=== PATIENT | female | born 1965 | race Caucasian/White ===

== ENCOUNTER 2016-07-19 18:58 | Emergency (ER) | payer BC, OTHER ==
[2016-07-19 19:09] VITALS: TEMP 97.8
--- NOTE | 2016-07-19 19:24 | ED ---
General Adult HPI - General Chief complaint: Extremity Injury, Lower Stated complaint: RT HIP PAIN Time Seen by Provider: 07/19/16 19:19 Source: patient, RN notes reviewed Mode of arrival: ambulatory Limitations: no limitations - History of Present Illness Initial comments: Patient 50-year-old female who presents emergency room today with a chief complaint of increased pain to the right hip area. She does admit that she's had chronic right hip pain. States she's been following up with orthopedics is had injections. States that today she was trying to get into her car and felt a pop located to the right hip area. States increased pain to this area worse with certain movements. States she has been able to bear weight and ambulate. Denies any other complaints or symptoms. Denies any bowel or bladder incontinence or retention. Denies any saddle anesthesia. Patient denies any recent fever, chills, shortness of breath, chest pain, back pain, abdominal pain , nausea or vomiting, dysuria or hematuria, constipation or diarrhea, headaches or visual changes, or any other complaints. - Related Data Home Medications Medication Instructions Recorded Confirmed Acyclovir [Zovirax] 800 mg PO TID PRN 07/19/16 07/19/16 Albuterol Inhaler [Ventolin Hfa 1 - 2 puff INHALATION RT-Q4H PRN 07/19/16 Inhaler] Aspirin EC [Ecotrin Low Dose] 81 mg PO DAILY 07/19/16 07/19/16 Atenolol [Tenormin] 50 mg PO BID 07/19/16 07/19/16 Beclomethasone Dipropionate [Qvar 1 puff INHALATION RT-DAILY 07/19/16 07/19/16 40 mcg] Cyclobenzaprine [Flexeril] 5 mg PO TID 07/19/16 07/19/16 Ergocalciferol (Vitamin D2) 50,000 unit PO TH 07/19/16 07/19/16 [Vitamin D2] Fluticasone Nasal [place] [Flonase 2 spr EA NOSTRIL DAILY 07/19/16 07/19/16 Nasal [place]] Gabapentin [Neurontin] 200 mg PO TID PRN 07/19/16 07/19/16 Ibuprofen [Motrin] 800 mg PO Q8H PRN 07/19/16 07/19/16 Meloxicam [Mobic] 15 mg PO BID 07/19/16 07/19/16 Montelukast [Singulair] 10 mg PO DAILY 07/19/16 07/19/16 Pantoprazole [Protonix] 40 mg PO DAILY 07/19/16 07/19/16 Pravastatin Sodium [Pravachol] 20 mg PO DAILY 07/19/16 07/19/16 SUMAtriptan SUCCINATE [Imitrex] 50 mg PO BID PRN MDD 100MG 07/19/16 07/19/16 predniSONE 20 mg PO BID 07/19/16 07/19/16 traMADol HCL [Ultram] 50 mg PO Q6HR PRN 07/19/16 07/19/16 Previous Rx's Medication Instructions Recorded Hydrocodone/Acetaminophen [[place] 1 each PO Q6HR PRN #15 tab 07/19/16 5-325] Allergies Allergy/AdvReac Type Severity Reaction Status Date / Time indomethacin [From Indocin] Allergy Unknown Verified 07/19/16 19:19 moxifloxacin [From Avelox] Allergy Unknown Verified 07/19/16 19:19 Sulfa (Sulfonamide Allergy Unknown Verified 07/19/16 19:19 Antibiotics) Review of Systems ROS Statement: Those systems with pertinent positive or pertinent negative responses have been documented in the HPI. ROS Other: All systems not noted in ROS Statement are negative. Past Medical History Past Medical History: Hypertension Additional Past Medical History / Comment(s): collapsed carotid, Chronic Bronchitis. DJD. History of Any Multi-Drug Resistant Organisms: None Reported Past Surgical History: Appendectomy, Cholecystectomy Additional Past Surgical History / Comment(s): ortho Past Psychological History: No Psychological Hx Reported Smoking Status: Current every day smoker Past Alcohol Use History: None Reported Past Drug Use History: None Reported General Exam - General Exam Comments Initial Comments: General: The patient is awake and alert, in no distress, and does not appear acutely ill. Neck: The neck is supple, there is no tenderness or JVD. Cardiovascular: There is a regular rate and rhythm. No murmur, rub or gallop is appreciated. Respiratory: Lungs are clear to auscultation, respirations are non-labored, breath sounds are equal. No wheezes, stridor, rales, or rhonchi. Musculoskeletal: Normal appearance of the right hip. No shortening or rotation. Sensation is intact pulses equal bilaterally 2+. Mild tenderness along. Mild tenderness over the lateral aspect of the right hip. No other bony tenderness. Neurological: A&O x 3. CN II-XII intact, There are no obvious motor or sensory deficits. Coordination appears grossly intact. Speech is normal. Skin: Skin is warm and dry and no rashes or lesions are noted. Psychiatric: Normal mood and affect. Limitations: no limitations Course Vital Signs 07/19/16 19:06 Temperature 97.8 F Pulse Rate 84 Respiratory 20 Rate Blood Pressure 155/85 O2 Sat by Pulse 96 Oximetry Medical Decision Making - Medical Decision Making Patient reexamined at this time shows no signs of distress. X-rays are negative. Patient will be given short prescription of pain medication go home with. Advised follow-up with orthopedic over the next 2 days. Advised return for any other concerns. Disposition Clinical Impression: Right hip pain Disposition: HOME SELF-CARE Condition: Good Instructions: Hip Pain (ED) Additional Instructions: Please use medication as discussed. Please follow-up with family doctor/ orthopedic in the next 2 days. Please return to emergency room if the symptoms increase or worsen or for any other concerns. Prescriptions: Hydrocodone/Acetaminophen [[place] 5-325] 1 each PO Q6HR PRN #15 tab PRN Reason: Pain Time of Disposition: 20:12
--- NOTE | 2016-07-19 19:53 | XR ---
EXAMINATION TYPE: XR Hip RT and AP Pelvis DATE OF EXAM: 07/19/2016 7:49 PM COMPARISON: NONE HISTORY: Hip pain TECHNIQUE: 4 views. FINDINGS: The pelvic ring is intact. Proximal right femur and hip joint appear intact. There is no sign of a fr acture. Sacroiliac joints appear normal. CONCLUSION: Negative pelvis and right hip exam.
[2016-07-19 20:23] VITALS: BP 150/80; PULSE 70; RESP 15
== END 2016-07-19 20:21 | disposition home or self-care (01) ==
LOC: EC 18:58
DX: M25.551 Pain in right hip (principal); I10 Essential (primary) hypertension; F17.200 Nicotine dependence, unspecified, uncomplicated; Z79.52 Long term (current) use of systemic steroids; Z79.1 Long term (current) use of non-steroidal anti-inflammatories (NSAID); Z79.51 Long term (current) use of inhaled steroids; Z79.82 Long term (current) use of aspirin; Z79.899 Other long term (current) drug therapy; Z88.1 Allergy status to other antibiotic agents; Z88.2 Allergy status to sulfonamides; Z88.8 Allergy status to other drugs, medicaments and biological substances
CPT/HCPCS: 73502; 99283

== ENCOUNTER → 2016-07-24 | Outpatient (CLI) | payer BC, OTHER ==
[2016-07-24 12:38] LABS: Basophils # (A) 0.1 k/uL (0-0.2); Basophils % (A) 1 %; CH 32.6; CHCM 33.2; Eosinophils # (A) 0.2 k/uL (0-0.7); Eosinophils % (A) 2 %; HCT 44.2 % (34.0-46.0); HDW 2.86; HGB 14.7 gm/dL (11.4-16.0); Luc # (Auto) 0.32; Luc % (Auto) 3; Lymphocytes # (A) 2.3 k/uL (1.0-4.8); Lymphocytes % (A) 22 %; MCH 32.9 pg (25.0-35.0); MCHC 33.2 g/dL (31.0-37.0); Mean Platelet Volume 7.8; Monocytes # (A) 0.6 k/uL (0-1.0); Monocytes % (A) 6 %; Neutrophils # (A) 7.2 k/uL (1.3-7.7); Neutrophils % (A) 67 %; RBC 4.46 m/uL (3.80-5.40); RDW 14.1 % (11.5-15.5); WBC 10.7 k/uL (3.8-10.6); WBC (Perox) 11.07
[2016-07-24 12:48] LABS: Rheumatoid Factor, Qnt <9 IU/mL (<12)
[2016-07-24 12:49] LABS: C Reactive Protein 9.6 mg/L (<10.0); Uric Acid 5.4 mg/dL (3.7-7.4)
[2016-07-24 14:40] LABS: Erythrocyte Sedimentation Rate 17 mm/hr (0-20)
[2016-07-24 16:07] LABS: ANA w/Reflex to Titer POSITIVE (NEGATIVE)
[2016-07-25 06:22] LABS: Lyme Antibodies Total(IgG/IgM) 0.16 (<0.90)
[2016-07-25 12:50] LABS: HLA B27 NEGATIVE; HLA B27 Comment SEEBELOW
== END ==
LOC: LABWHC1 11:50
PROVIDERS: ATTEND Orthopaedic Surgery
DX: M06.9 Rheumatoid arthritis, unspecified (principal); M32.9 Systemic lupus erythematosus, unspecified
CPT/HCPCS: 36415; 84550; 85025; 85652; 86038; 86039; 86140; 86225; 86431; 86618; 86812

== ENCOUNTER → 2016-07-24 | Outpatient (CLI) | payer BC, OTHER | END | disposition home or self-care (01) | LOC: RADMRIMAIN 12:11 | PROVIDERS: ATTEND Orthopaedic Surgery | DX: Z53.9 Procedure and treatment not carried out, unspecified reason (principal) ==

== ENCOUNTER → 2016-07-25 | Outpatient (CLI) | payer BC, OTHER ==
--- NOTE | 2016-07-26 07:34 | MR ---
EXAMINATION TYPE: MR hip RT wo con DATE OF EXAM: 07/25/2016 8:16 PM COMPARISON: Pelvic and right hip x-ray July 19, 2016. Outside pelvic and right hip x-rays July 20. HISTORY: Rt hip pain/limited movement x 1 year, no trauma Standard multiplanar, multisequence MRI departmental protocol Multiplanar, multisequence images of the pelvis focusing on right hip were acquired. FINDINGS: Bone marrow signal intensity throughout the pelvis particularly in the right hip is felt sa tisfactory without suspicious edema seen. Sacroiliac joints are maintained. Pubic symphysis is intact . There are small symmetric hip joint effusions seen bilaterally. Femoral head shapes are maintained bilaterally. No suspicious linear T1 signal is seen to suggest avascular necrosis. No significant spu rring is noted. Muscle bulk in the right thigh is symmetric and felt within normal limits to opposite left side. No f at or bowel containing inguinal hernia is seen bilaterally. No suspicious groin adenopathy is noted. Labrum appears intact given limitation of nonarthrogram study. There is asymmetric increased fluid in the right hip over the greater trochanter seen best coronal im age 8. More mild appearance is noted over the opposite left trochanter. Mild increased fluid is also seen in the right hip at level of lesser trochanter on coronal image 11 and axial image 9. Some incre ased signal in the proximal tendons head attachment is identified. Some increased signal is seen with in the muscle of the anterolateral proximal thigh on axial image 6. Slice portion of bladder is unremarkable. Uterus is anteverted in shape. Multiple nabothian cysts are seen in the cervix. No free fluid is seen in pelvis. No suspicious bowel dilatation is seen. No conc erning pelvic adenopathy is noted. Some diverticula proximal sigmoid colon are incidentally noted in the left lower quadrant of the lower abdomen. IMPRESSION: Moderate to severe right-sided greater trochanteric bursitis and mild right-sided lesser trochanteric bursitis. Incidental note is made of mild left-sided greater trochanteric bursitis.
== END | disposition home or self-care (01) ==
LOC: RADMRIMAIN 18:54
PROVIDERS: ATTEND Orthopaedic Surgery
DX: M70.61 Trochanteric bursitis, right hip (principal); M70.62 Trochanteric bursitis, left hip

== ENCOUNTER 2017-04-09 23:05 | Emergency (ER) | payer BC ==
[2017-04-09 23:15] VITALS: RESP 18
--- NOTE | 2017-04-09 23:49 | ED ---
General Adult HPI - General Chief complaint: GI Bleed Stated complaint: rectal bleeding Time Seen by Provider: 04/09/17 23:30 Source: patient, RN notes reviewed Mode of arrival: ambulatory Limitations: no limitations - History of Present Illness Initial comments: 51 yo female presents to the ER with cc of noticing a bulge in the vaginal area with associated mild vaginal bleeding upon wiping. Patient was concerned that it may be rectal but she states it is more when she wipes vaginally. She has had multiple children in the past. She denies any pain states she has a little bit of pelvic pressure with this. She denies any fever chills cough cold runny nose. Patient was concerned due to the bulge so she thought that she should be seen. Patient denies any recent fever, chills, shortness of breath, chest pain, back pain, nausea vomiting, numbness or tingling, dysuria or hematuria, constipation or diarrhea, headaches or visual changes, or any other current symptoms. - Related Data Home Medications Medication Instructions Recorded Confirmed Acyclovir [Zovirax] 800 mg PO TID PRN 07/19/16 04/09/17 Albuterol Inhaler [Ventolin Hfa 1 - 2 puff INHALATION RT-Q4H PRN 07/19/16 Inhaler] Aspirin EC [Ecotrin Low Dose] 81 mg PO DAILY 07/19/16 04/09/17 Atenolol [Tenormin] 50 mg PO BID 07/19/16 04/09/17 Beclomethasone Dipropionate [Qvar 1 puff INHALATION RT-DAILY 07/19/16 04/09/17 40 mcg] Ergocalciferol (Vitamin D2) 50,000 unit PO TH 07/19/16 04/09/17 [Vitamin D2] Fluticasone Nasal [place] [Flonase 2 spr EA NOSTRIL DAILY 07/19/16 04/09/17 Nasal [place]] Gabapentin [Neurontin] 300 mg PO TID PRN 07/19/16 04/09/17 Ibuprofen [Motrin] 800 mg PO Q8H PRN 07/19/16 04/09/17 Meloxicam [Mobic] 15 mg PO DAILY 07/19/16 04/09/17 Montelukast [Singulair] 10 mg PO DAILY 07/19/16 04/09/17 SUMAtriptan SUCCINATE [Imitrex] 50 mg PO BID PRN MDD 100MG 07/19/16 04/09/17 predniSONE 20 mg PO BID 07/19/16 04/09/17 traMADol HCL [Ultram] 50 mg PO Q6HR PRN 07/19/16 04/09/17 Atorvastatin Calcium [Lipitor] 20 mg PO HS 04/09/17 04/09/17 Omeprazole 20 mg PO 04/09/17 Allergies Allergy/AdvReac Type Severity Reaction Status Date / Time indomethacin [From Indocin] Allergy Unknown Verified 07/19/16 19:19 moxifloxacin [From Avelox] Allergy Unknown Verified 07/19/16 19:19 Sulfa (Sulfonamide Allergy Unknown Verified 07/19/16 19:19 Antibiotics) Review of Systems ROS Statement: Those systems with pertinent positive or pertinent negative responses have been documented in the HPI. ROS Other: All systems not noted in ROS Statement are negative. Past Medical History Past Medical History: Hypertension Additional Past Medical History / Comment(s): collapsed carotid, Chronic Bronchitis. DJD, scoliosis History of Any Multi-Drug Resistant Organisms: None Reported Past Surgical History: Appendectomy, Cholecystectomy, Orthopedic Surgery Additional Past Surgical History / Comment(s): Knee sx. Past Psychological History: No Psychological Hx Reported Smoking Status: Current every day smoker Past Alcohol Use History: None Reported Past Drug Use History: None Reported General Exam - General Exam Comments Initial Comments: General: The patient is awake and alert, in no distress, and does not appear acutely ill. Eye: Pupils are equal, round. Ears, nose, mouth and throat: There are moist mucous membranes. Neck: The neck is supple, there is no tenderness. Cardiovascular: There is a regular rate and rhythm. No murmur, rub or gallop is appreciated. Respiratory: Lungs are clear to auscultation, respirations are non-labored, breath sounds are equal. No wheezes, stridor, rales, or rhonchi. Gastrointestinal: Soft, non-distended, non-tender abdomen without masses or organomegaly noted. There is no rebound or guarding present. No CVA tenderness. Bowel sounds are unremarkable. Musculoskeletal: Normal ROM, no tenderness, There is no pedal edema. There is no calf tenderness or swelling. Sensation intact. Pulses equal bilaterally 2+. Neurological: CN II-XII intact, There are no obvious motor or sensory deficits. Coordination appears grossly intact. Speech is normal. Skin: Skin is warm and dry and no rashes or lesions are noted. Psychiatric: Cooperative, appropriate mood & affect, normal judgment. Limitations: no limitations External exam: Present: normal external exam, other (uterine prolapse suspicion) . Absent: erythema, swelling, lesions, lacerations, ecchymosis Course Vital Signs 04/09/17 23:10 Temperature 97.7 F Pulse Rate 87 Respiratory 18 Rate Blood Pressure 142/89 O2 Sat by Pulse 99 Oximetry Medical Decision Making - Medical Decision Making 51-year-old female presents to the emergency department with a chief complaint of what appears to be uterine prolapse. There is hematuria which patient states is chronic. Ultrasound and urine have been reviewed. This time we discussed follow-up with [facility]. We discussed return parameters all questions. Patient stated that she understood and she is in agreement this plan. All questions have been answered. She will be discharged. - Lab Data Lab Results 04/09/17 Range/Units 23:40 Urine Color Yellow Urine Appearance Clear (Clear) Urine pH 6.0 (5.0-8.0) Ur Specific [place] 1.018 (1.001-1.035) Urine Protein Negative (Negative) Urine Glucose (UA) Negative (Negative) Urine Ketones Negative (Negative) Urine Blood Moderate H (Negative) Urine Nitrite Negative (Negative) Urine Bilirubin Negative (Negative) Urine Urobilinogen <2.0 (<2.0) mg/dL Ur Leukocyte Esterase Negative (Negative) Urine RBC 30 H (0-5) /hpf Urine WBC <1 (0-5) /hpf Ur Squamous Epith Cells 6 H (0-4) /hpf Urine Bacteria Rare H (None) /hpf Urine Mucus Rare H (None) /hpf - Radiology Data Radiology results: report reviewed, image reviewed Disposition Clinical Impression: Uterine prolapse, Hematuria Disposition: HOME SELF-CARE Condition: Stable Instructions: Uterine Prolapse (ED) Additional Instructions: Please use medication as discussed. Please follow up with family doctor if symptoms have not improved over the next two days. Please return to the emergency room if your symptoms increase or worsen or for any other concerns. Referrals: Darren Fierro MD [Primary Care Provider] - 1-2 days Julia Hill MD [STAFF PHYSICIAN] - 1-2 days Time of Disposition: 00:35
[2017-04-09 23:59] LABS: Appearance,Urine Clear (Clear); Bacteria,Urine Rare /hpf; Bilirubin,Urine Negative (Negative); Glucose,Urine (UA) Negative (Negative); Ketones,Urine Negative (Negative); Leukocyte Esterase,Urine Negative (Negative); Mucus,Urine Rare /hpf; Nitrite,Urine Negative (Negative); Particle Count 2544; Protein,Urine Negative (Negative); RBC,Urine 30 /hpf (0-5); Specific Gravity,Urine 1.018 (1.001-1.035); Squamous Epithelial Cell,Urine 6 /hpf (0-4); UA Billing (MACRO vs. MICRO) MICRO; Urobilinogen,Urine <2.0 mg/dL (<2.0); WBC,Urine <1 /hpf (0-5)
--- NOTE | 2017-04-10 00:27 | US ---
EXAMINATION TYPE: US transvaginal DATE OF EXAM: 04/10/2017 COMPARISON: NONE CLINICAL HISTORY: Pain. Postmenopausal bleeding prolapsed uterus TECHNIQUE: Transvaginal (TV) Date of LMP: 4 years ago EXAM MEASUREMENTS: Uterus: 7.2 x 2.9 x 4.3 cm Endometrial Stripe: 0.4 cm Right Ovary: 1.9 x .8 x 1.2 cm 1. Uterus: Anteverted heterogenous nabothian cysts seen in cervix 2. Endometrium: heterogenous with echogenic foci seen 3. Right Ovary: wnl 4. Left Ovary: Obscured by overlying bowel gas Spectral, color and waveform doppler imaging shows good arterial and venous flow within the right o vary; there is no evidence for ovarian torsion. 5. Bilateral Adnexa: wnl 6. Posterior cul-de-sac: wnl Uterus and endometrium heterogenous with echogenic foci seen within endometrium IMPRESSION: No endometrial thickening. Tiny echogenic areas in the endometrium measured 2 mm and coul d be calcifications. No adnexal mass. No evidence of ovarian torsion.
[2017-04-10 00:57] VITALS: BP 128/68; PULSE 81; TEMP 97
== END 2017-04-10 00:57 | disposition home or self-care (01) ==
LOC: EC 23:05
DX: N81.4 Uterovaginal prolapse, unspecified (principal); R31.9 Hematuria, unspecified; I10 Essential (primary) hypertension; F17.200 Nicotine dependence, unspecified, uncomplicated; Z79.1 Long term (current) use of non-steroidal anti-inflammatories (NSAID); Z79.51 Long term (current) use of inhaled steroids; Z79.52 Long term (current) use of systemic steroids; Z79.82 Long term (current) use of aspirin; Z79.899 Other long term (current) drug therapy; Z88.1 Allergy status to other antibiotic agents; Z88.2 Allergy status to sulfonamides; Z88.6 Allergy status to analgesic agent; Z87.39 Personal history of other diseases of the musculoskeletal system and connective tissue; Z87.09 Personal history of other diseases of the respiratory system
CPT/HCPCS: 76830; 81001; 87086; 93976; 99284

== ENCOUNTER → 2017-05-07 | Outpatient (CLI) | payer BC ==
[2017-05-07 12:24] LABS: Anion Gap 8 mmol/L; Blood Urea Nitrogen 19 mg/dL (7-17); Calcium 9.9 mg/dL (8.4-10.2); Carbon Dioxide 26 mmol/L (22-30); Chloride 109 mmol/L (98-107); Glucose 109 mg/dL (74-99); Non-African American GFR(MDRD) >60 (>60 ml/min/1.73 sqM); Potassium 4.6 mmol/L (3.5-5.1); Sodium 143 mmol/L (137-145)
[2017-05-07 13:03] LABS: Basophils # (A) 0.1 k/uL (0-0.2); Basophils % (A) 1 %; CH 31.2; CHCM 33.2; Eosinophils # (A) 0.2 k/uL (0-0.7); Eosinophils % (A) 2 %; HCT 44.5 % (34.0-46.0); HDW 2.45; HGB 14.4 gm/dL (11.4-16.0); Luc # (Auto) 0.11; Luc % (Auto) 1; Lymphocytes # (A) 2.1 k/uL (1.0-4.8); Lymphocytes % (A) 25 %; MCH 30.7 pg (25.0-35.0); MCHC 32.5 g/dL (31.0-37.0); MCV 94.5 fL (80.0-100.0); Mean Platelet Volume 8.1; Monocytes # (A) 0.4 k/uL (0-1.0); Monocytes % (A) 5 %; Neutrophils # (A) 5.5 k/uL (1.3-7.7); Neutrophils % (A) 66 %; RBC 4.71 m/uL (3.80-5.40); RDW 13.2 % (11.5-15.5); WBC 8.4 k/uL (3.8-10.6); WBC (Perox) 8.54
== END | disposition home or self-care (01) ==
LOC: LABPAT 11:43
PROVIDERS: ATTEND Obstetrics & Gynecology
DX: Z01.812 Encounter for preprocedural laboratory examination (principal)
CPT/HCPCS: 36415; 80048; 85025; 86850; 86900; 86901

== ENCOUNTER 2017-05-17 05:44 | Inpatient (IN) | payer BC, OTHER ==
[2017-05-07 12:03] VITALS: BMI 29.2
--- NOTE | 2017-05-16 14:44 | P.HPOB ---
History of Present Illness H&P Date: 05/16/17 Chief Complaint: Uterine prolapse with cystocele and rectocele This is a 51-year-old female 4 para 3 who presents for total vaginal hysterectomy with anterior and posterior vaginal colporrhaphy secondary to uterine prolapse with cystocele and rectocele. The patient complains of a vaginal mass along with pelvic pressure, pelvic pain, and back pain. She also has some slight urinary incontinence but no constipation. The pain radiates towards her lower back. Her symptoms are exacerbated by prolonged standing and physical activity. Her symptoms began approximately 1 month ago. She was diagnosed with third degree cystocele, second-degree rectocele, and second- degree uterine prolapse in the office on 04/12/2017. She was fitted for a #4 ring with support and was able to tolerate this well up until her hysterectomy. The patient stated the pain began all of a sudden approximately 3 days before she saw me in the office and that there was no known event that preceded her symptoms. She complained of constant pelvic pain and back pain. Pelvic ultrasound showed uterus measuring 7.2 x 2.9 x 4.3 cm with an endometrial stripe thickness of 0.4 cm. The right ovary appeared normal and the left ovary was not visualized. Obstetrical history: . History of 3 vaginal deliveries and one ectopic. Gynecologic history: She is not currently sexually active. She does have a history of herpes however no outbreaks in many years. Social history: She is . She works full-time at [employer]. Review of Systems Constitutional: Reports fatigue, Reports night sweats Eyes: denies blurred vision, denies pain Ears, nose, mouth and throat: Denies headache, Denies sore throat Cardiovascular: Denies chest pain, Denies shortness of breath Respiratory: Denies cough Gastrointestinal: Reports abdominal pain (RLQ), Denies constipation Genitourinary: Reports pelvic pain Menstruation: Reports postmenopausal Musculoskeletal: Reports low back pain, Reports muscle cramps, Reports myalgias Neurological: Reports headaches Psychiatric: Reports anxiety, Reports change in sleep habits, Reports depression , Reports insomnia Hematologic/Lymphatic: Reports easy bruising Past Medical History Past Medical History: Asthma, GERD/Reflux, Hypertension, Osteoarthritis (OA) Additional Past Medical History / Comment(s): collapsed LEFT carotid, Chronic Bronchitis. scoliosis, degenerative disc diseased, degenerative spondylosthsis, inflammatory autoimmune disorder History of Any Multi-Drug Resistant Organisms: None Reported Past Surgical History: Adenoidectomy, Appendectomy, Cholecystectomy, Orthopedic Surgery, Tonsillectomy, Tubal Ligation Additional Past Surgical History / Comment(s): BMT X2, LAPAROTOMY, ARTHROSCOPIC LEFT KNEE, ARTHROSCOPIC SURGERY RIGHT , PARTIAL JOINT REPLACEMENT LEFT KNEE, D&C Past Anesthesia/Blood Transfusion Reactions: No Reported Reaction Past Psychological History: Anxiety, Depression Smoking Status: Current every day smoker Past Alcohol Use History: None Reported Past Drug Use History: None Reported - Past Family History Sister(s) Family Medical History: Cancer Additional Family Medical History / Comment(s): BREAST CANCER Medications and Allergies Home Medications Medication Instructions Recorded Confirmed Type Albuterol Inhaler [Ventolin Hfa 1 - 2 puff INHALATION RT-Q4H PRN 07/19/16 History Inhaler] Aspirin EC [Ecotrin Low Dose] 81 mg PO DAILY 07/19/16 05/07/17 History Atenolol [Tenormin] 50 mg PO BID 07/19/16 05/07/17 History Beclomethasone Dipropionate [Qvar 1 puff INHALATION RT-DAILY PRN 07/19/16 History 40 mcg] Ergocalciferol (Vitamin D2) 50,000 unit PO TH 07/19/16 05/07/17 History [Vitamin D2] Fluticasone Nasal [place] [Flonase 2 spr EA NOSTRIL DAILY PRN 07/19/16 05/07/17 History Nasal [place]] Gabapentin [Neurontin] 300 mg PO [id number] 07/19/16 05/07/17 History Ibuprofen [Motrin] 800 mg PO Q8H PRN 07/19/16 05/07/17 History Meloxicam [Mobic] 15 mg PO DAILY 07/19/16 05/07/17 History Montelukast [Singulair] 10 mg PO DAILY 07/19/16 05/07/17 History SUMAtriptan SUCCINATE [Imitrex] 50 mg PO BID PRN MDD 100MG 07/19/16 05/07/17 History traMADol HCL [Ultram] 50 mg PO Q6HR PRN 07/19/16 05/07/17 History Atorvastatin Calcium [Lipitor] 20 mg PO HS 04/09/17 05/07/17 History Omeprazole 20 mg PO BID 04/09/17 05/07/17 History Atenolol [Tenormin] 50 mg PO HS PRN 05/07/17 05/07/17 History Gabapentin [Neurontin] 900 mg PO HS 05/07/17 05/07/17 History Allergies Allergy/AdvReac Type Severity Reaction Status Date / Time indomethacin [From Indocin] Allergy Anaphylaxis Verified 05/07/17 10:59 moxifloxacin [From Avelox] Allergy SHORTNESS Verified 05/07/17 10:59 OF BREATH Sulfa (Sulfonamide Allergy SEVERE Verified 05/07/17 10:59 Antibiotics) ITCHING Exam Osteopathic Statement: *. No significant issues noted on an osteopathic structural exam other than those noted in the History and Physical/Consult. HEENT: Within normal limits Heart: Regular rate and rhythm Lungs: Clear to auscultation bilaterally Abdomen: Soft, nontender Pelvic exam: Uterus is anteverted, nontender, with no adnexal masses palpated. Third-degree cystocele and second-degree rectocele are noted. Second-degree uterine prolapse is noted. Extremities: Negative Homans Assessment and Plan (1) Cystocele with uterine prolapse Status: Acute Code(s): N81.4 - UTEROVAGINAL PROLAPSE, UNSPECIFIED SNOMED Code(s): 152469971 (2) Rectocele Status: Acute Code(s): N81.6 - RECTOCELE SNOMED Code(s): 164215111 Plan: Proceed with total vaginal hysterectomy with anterior and posterior vaginal colporrhaphy. I have discussed the risks, benefits, and alternative therapies for the above- mentioned procedure and for both sedation/anesthesia as well as necessary blood products administration, if indicated, as they pertain to this patient. The patient has indicated her understanding and acceptance of the risks and procedures discussed.
[~2017-05-17 05:44] MED LIST: DEXAMETHASONE SOD PHOSPHATE 10 MG/ML 1 ML VIAL IV ONE; HYDROmorphone 0.5 MG/0.5 ML SYRINGE IVP PRN; LACTATED RINGERS 1,000 ML IV SCH; MIDAZOLAM 2 MG/2 ML VIAL IV PRN; ONDANSETRON 4 MG/2 ML VIAL IVP ONE; ceFAZolin IN SWFI 2 GM/20 ML SYRINGE IVP ONE
[2017-05-17] MEDS ORDERED: LIDOCAINE 1% 20 ML VIAL (10MG/ML) FOR IV START INTRADERMA ONE (06:29)
[2017-05-17] MEDS ORDERED: PHENYLEPHRINE-0.9% NACL SYG 1 MG/10 ML SYRINGE ONE (07:30)
[2017-05-17] MEDS ORDERED: fentaNYL (PF) 50 MCG/ML 2 ML AMP ONE (07:30)
[2017-05-17] MEDS ORDERED: MIDAZOLAM 2 MG/2 ML VIAL ONE (07:30)
[2017-05-17] MEDS ORDERED: LIDOCAINE 1% INJ 10MG/ML (20 ML MDV) ONE (07:30)
[2017-05-17] MEDS ORDERED: SUCCINYLCHOLINE CHLORIDE 100 MG/5 ML SYR IV ONE (07:30)
[2017-05-17] MEDS ORDERED: PROPOFOL 10 MG/ML 20 ML VIAL IV ONE (07:30)
[2017-05-17] MEDS ORDERED: EPINEPHrine 1 MG/ML 1 ML AMP IV ONE (07:52)
[2017-05-17] MEDS ORDERED: BACITRACIN 500 UNIT/GM OINT 28.4 GM TUBE TOPICAL ONE (07:59)
[2017-05-17] MEDS ORDERED: LACTATED RINGERS 1,000 ML IV ONE ×2 (08:48)
--- NOTE | 2017-05-17 09:04 | P.OP ---
Date of Procedure: 05/17/17 Preoperative Diagnosis: Uterine prolapse with cystocele and rectocele Postoperative Diagnosis: Same plus enterocele Procedure(s) Performed: Total vaginal hysterectomy with anterior and posterior vaginal repair Anesthesia: DOMINGO Surgeon: Jennifer Arreaga Label Tacker #1: Dinah Oreilly Estimated Blood Loss (ml): 50 Pathology: other (Uterus with cervix, vaginal mucosa) Condition: stable Disposition: floor Indications for Procedure: This is a 51-year-old female 4 para 3 who presents for total vaginal hysterectomy with anterior and posterior vaginal colporrhaphy secondary to uterine prolapse with cystocele and rectocele. The patient complains of a vaginal mass along with pelvic pressure, pelvic pain, and back pain. She also has some slight urinary incontinence but no constipation. The pain radiates towards her lower back. Her symptoms are exacerbated by prolonged standing and physical activity. Her symptoms began approximately 1 month ago. She was diagnosed with third degree cystocele, second-degree rectocele, and second- degree uterine prolapse in the office on 04/12/2017. She was fitted for a #4 ring with support and was able to tolerate this well up until her hysterectomy. The patient stated the pain began all of a sudden approximately 3 days before she saw me in the office and that there was no known event that preceded her symptoms. She complained of constant pelvic pain and back pain. Pelvic ultrasound showed uterus measuring 7.2 x 2.9 x 4.3 cm with an endometrial stripe thickness of 0.4 cm. The right ovary appeared normal and the left ovary was not visualized. Operative Findings: Grade 3 cystocele and grade 2 uterine prolapse are noted. Grade 1-2 rectocele is noted. Grade 2 enterocele is noted. Neither ovary is visualized. Description of Procedure: The patient is taken the operating room where she is placed in the dorsal lithotomy position. She is prepped and draped in the normal sterile fashion. Next a weighted speculum was placed in the patient's vagina and a right angle retractor was used to visualize the cervix. The anterior lip of the cervix is grasped with a single-tooth tenaculum. Next the cervix was circumferentially injected with one amp of epinephrine to 150 mL of normal saline. Next the cervix was circumscribed with a scalpel. The vaginal mucosa was pushed away from the cervix with a sponge. Next the uterosacral ligaments are clamped on either side with a Joyce clamp, cut with Valenzuela scissors, and then sutured with 0 Vicryl suture in a Joyce transfixion stitch and then held on either side with a straight hemostat. Next the posterior peritoneal reflection was identified and entered sharply with Valenzuela scissors. The edges of the vaginal mucosa was then tagged with 0 Vicryl suture and held with a curved hemostat for identification. Next a longbilled weighted speculum was placed through the posterior peritoneal reflection. Next the cardinal ligaments were clamped on either side with Joyce clamps, cut with Valenzuela scissors, and then sutured with 0 Vicryl suture in Joyce transfixion stitches and cut. Next the vesicouterine peritoneum reflection is identified and entered sharply with Metzenbaum scissors. A right angle bladder retractor is then used to retract the bladder. The uterine arteries are clamped on either side with Joyce clamps, cut with Valenzuela scissors, and then sutured with 0 Vicryl suture in Joyce transfixion stitches. The round ligament is also clamped on either side with a Joyce clamp , cut with Valenzuela scissors, and sutured with 0 Vicryl suture in Joyce transfixion stitches. Next the uterine ovarian ligament and tube were clamped on either side with a Joyce clamp, cut with Valenzuela scissors, and then sutured with 0 Vicryl suture in a [id number] stitch, flashed, and then free tied with another suture of 0 Vicryl suture. These pedicles were held with a straight Bakari for identification. The uterus is removed from the field. Excellent hemostasis is noted. Next the peritoneum is closed with 0 Vicryl suture in a pursestring fashion incorporating all the held ligaments. Again neither ovary was visualized prior to closing the vaginal cuff area. Next the uterine ovarian ligaments are tied together in the middle and cut. Next attention was turned to the cystocele repair. The edges of the vaginal mucosa are held with 2 Allis clamps. Next injection of the same epinephrine solution is injected underneath the mucosa upwards towards the urethra. Metzenbaum scissors were used to dissect underneath the vaginal mucosa and cut along the way up to just below the urethra. Sharp and blunt dissection are used to dissect the bladder away from the vaginal mucosa. Once the bladder is freed, the cystocele is reduced with 0 Vicryl suture in [id number] stitches on either side of the cystocele. Next the edges of the vaginal mucosa are trimmed with Metzenbaum scissors. Next the vaginal mucosa is sutured with 0 Vicryl suture in a running locked fashion incorporating the vaginal cuff. The uterosacral ligaments were also tied together in the midline prior to completely closing the vaginal cuff. Excellent hemostasis is noted. The Reyes catheter is inserted and clear urine is noted. Next attention was turned to the posterior repair. 2 Allis clamps are used to grasp the introitus at the 4 and 8 o'clock position. Next injection of the same epinephrine solution was injected underneath the vaginal mucosa upwards towards the cuff. Next the scalpel was used to remove a triangle her piece of tissue between the 2 Allis clamps. Metzenbaum scissors are used to dissect underneath the vaginal posterior upwards towards the cuff. The edges of the vaginal mucosa are held with Allis clamps. Next the rectocele and enterocele were dissected away from the vaginal mucosa. The enterocele was reduced with 0 Vicryl suture in a pursestring fashion. The rectocele was repaired with 0 Vicryl suture in interrupted fashion. Next the vaginal mucosa was trimmed with Metzenbaum scissors. The vaginal mucosa was then sutured with 0 Vicryl suture in a running locked fashion up to the introitus and then brought underneath this tissue and whipstitched in a running fashion on the subcutaneous layer and then on to the skin in a subcuticular fashion and tied at the introitus. Next the vagina is packed with one-inch iodoform gauze with bacitracin ointment. All sponge and needle counts are correct and the patient is then taken to recovery room in stable condition.
[2017-05-17] MEDS ORDERED: Acetaminophen-Codeine 300-30mg TAB PO PRN ×2 (09:43)
[2017-05-17] MEDS ORDERED: SIMETHICONE 80 MG CHEWABLE PO PRN (09:43)
[2017-05-17] MEDS ORDERED: METOCLOPRAMIDE 5 MG/ML 2 ML VIAL IVP PRN (09:43)
[2017-05-17] MEDS ORDERED: ZOLPIDEM 5 MG TAB PO PRN (09:43)
[2017-05-17] MEDS ORDERED: ONDANSETRON 4 MG/2 ML VIAL IVP PRN (09:43)
[2017-05-17] MEDS ORDERED: diphenhydrAMINE 50 MG/ML 1 ML VIAL IVP PRN (09:43)
[2017-05-17] MEDS ORDERED: FLUTICASONE 50MCG/SPRAY NASAL 16GM EA NOSTRIL PRN (09:43)
[2017-05-17] MEDS ORDERED: NALOXONE 0.4 MG/ML 1 ML VIAL IV PRN (09:43)
[2017-05-17] MEDS ORDERED: BUDESONIDE 0.5 MG/2 ML NEBU INHALATION PRN (09:43)
[2017-05-17] MEDS ORDERED: IBUPROFEN 600 MG TAB PO PRN (09:43)
[2017-05-17] MEDS: HYDROmorphone PCA 5 MG/25 ML SYRINGE IV PRN ×2 (10:17→15:10)
[2017-05-17] MEDS: KETOROLAC 30 MG/ML 1 ML VIAL IVP PRN ×3 (10:29→21:51)
[2017-05-17] MEDS: ATENOLOL 50 MG TAB PO SCH ×2 (11:35→21:55)
[2017-05-17] MEDS: LACTATED RINGERS 1,000 ML IV SCH (11:35)
[2017-05-17] MEDS: PANTOPRAZOLE 40 MG TABLET PO SCH (11:35)
[2017-05-17] MEDS: MELOXICAM 7.5 MG TAB PO SCH (11:36)
[2017-05-17] MEDS: MONTELUKAST 10 MG TAB PO SCH (11:36)
[2017-05-17] MEDS: SENNOSIDES-DOCUSATE SODIUM 1 EACH TAB PO SCH ×2 (11:54→22:06)
[2017-05-17] MEDS: NICOTINE 21MG/24HR PATCH TRANSDERM SCH (13:52)
[2017-05-17] MEDS ORDERED: GABAPENTIN 300 MG CAP PO SCH (21:00)
[2017-05-17] MEDS ORDERED: ATORVASTATIN 20 MG TAB PO SCH (21:00)
[2017-05-17] MEDS: ALBUTEROL NEBULIZED 2.5 MG/3 ML INHALATION PRN (21:09)
[2017-05-17 21:54] VITALS: TEMP 98.1
[2017-05-18] MEDS: KETOROLAC 30 MG/ML 1 ML VIAL IVP PRN ×2 (03:52→11:29)
[2017-05-18] MEDS: LACTATED RINGERS 1,000 ML IV SCH (03:53)
[2017-05-18] MEDS: ALBUTEROL NEBULIZED 2.5 MG/3 ML INHALATION PRN ×2 (04:27→09:24)
[2017-05-18] MEDS ORDERED: IBUPROFEN 800 MG TAB PO PRN (07:23)
[2017-05-18] MEDS ORDERED: SUMAtriptan SUCCINATE 50 MG TAB PO PRN (07:24)
[2017-05-18] MEDS ORDERED: GABAPENTIN 300 MG CAP PO SCH (07:30)
--- NOTE | 2017-05-18 07:34 | P.DS ---
Providers Date of admission: 05/17/17 05:44 Expected date of discharge: 05/18/17 Attending physician: Jennifer Arreaga Primary care physician: Darren Fierro - Discharge Diagnosis(es) (1) Cystocele with uterine prolapse Current Visit: Yes Status: Acute (2) Rectocele Current Visit: Yes Status: Acute Hospital Course: This is a 51-year-old female who underwent a total vaginal hysterectomy with anterior and posterior vaginal colporrhaphy on 05/17/2017. Postoperatively she has been ambulating. She is passing flatus but no bowel movement yet. Her catheter was just removed this morning and she has urinated very small amount so far this morning. Her bleeding has been moderate. She denies any clots. She does feel less pressure in her pelvic region compared to prior to surgery. She is having some achy feelings in her pelvic region but her pain medicines have been helping. The plan for today is to continue ambulating and to switch to oral pain medications. As long as she is urinating adequate amounts and her pain is well controlled, will plan on discharging home later today. She is given routine postoperative instructions including no heavy lifting, no bending or stooping, may shower, but no tub baths. She is encouraged to continue taking stool softeners at home until she has regular bowel movements. She is advised follow-up in the office in approximately 2 weeks for a postoperative check. She is advised to call the office if she has any further questions or concerns prior to her appointment time. She will be given a prescription for ibuprofen 800 and Tylenol 3 upon discharge. She also has requested a refill on her albuterol inhaler and nicotine patch. Procedures: Total vaginal hysterectomy with anterior and posterior vaginal colporrhaphy on 05/17/2017 Patient Condition at Discharge: Stable Plan - Discharge Summary Discharge Rx Participant: No New Discharge Prescriptions: New Acetaminophen-Codeine 300-30mg [Tylenol w/codeine #3] 1 each PO Q4HR PRN #30 tab PRN Reason: Moderate Pain Ibuprofen [Motrin] 800 mg PO TID PRN #60 tab PRN Reason: Mild Pain Nicotine 21Mg/24Hr Patch [Habitrol] 1 patch TRANSDERM DAILY #14 patch Sennosides-Docusate Sodium [Senokot-S] 2 each PO BID tab Continue Meloxicam [Mobic] 15 mg PO DAILY Aspirin EC [Ecotrin Low Dose] 81 mg PO DAILY Ergocalciferol (Vitamin D2) [Vitamin D2] 50,000 unit PO TH Atenolol [Tenormin] 50 mg PO BID Montelukast [Singulair] 10 mg PO DAILY Fluticasone Nasal [place] [Flonase Nasal [place]] 2 spr EA NOSTRIL DAILY PRN PRN Reason: ALLERY SYMPTOMS SUMAtriptan SUCCINATE [Imitrex] 50 mg PO BID PRN MDD 100MG PRN Reason: Migraine Headache Beclomethasone Dipropionate [Qvar 40 mcg] 1 puff INHALATION RT-DAILY PRN PRN Reason: Shortness Of Breath Gabapentin [Neurontin] 300 mg PO AC-BRKFST Atorvastatin Calcium [Lipitor] 20 mg PO HS Omeprazole 20 mg PO BID Gabapentin [Neurontin] 900 mg PO HS Atenolol [Tenormin] 50 mg PO HS PRN PRN Reason: SYSTOLIC OVER 150 Albuterol Inhaler [Ventolin Hfa Inhaler] 1 - 2 puff INHALATION RT-Q4H PRN #1 puff PRN Reason: Shortness Of Breath Discontinued traMADol HCL [Ultram] 50 mg PO Q6HR PRN PRN Reason: Pain No Action Ibuprofen [Motrin] 800 mg PO Q8H PRN PRN Reason: Pain Discharge Medication List Aspirin EC [Ecotrin Low Dose] 81 mg PO DAILY 07/19/16 [History] Atenolol [Tenormin] 50 mg PO BID 07/19/16 [History] Beclomethasone Dipropionate [Qvar 40 mcg] 1 puff INHALATION RT-DAILY PRN [History] Ergocalciferol (Vitamin D2) [Vitamin D2] 50,000 unit PO TH 07/19/16 [History] Fluticasone Nasal [place] [Flonase Nasal [place]] 2 spr EA NOSTRIL DAILY PRN [History] Gabapentin [Neurontin] 300 mg PO -BRKFST 07/19/16 [History] Ibuprofen [Motrin] 800 mg PO Q8H PRN 07/19/16 [History] Meloxicam [Mobic] 15 mg PO DAILY 07/19/16 [History] Montelukast [Singulair] 10 mg PO DAILY 07/19/16 [History] SUMAtriptan SUCCINATE [Imitrex] 50 mg PO BID PRN MDD 100MG 07/19/16 [History] Atorvastatin Calcium [Lipitor] 20 mg PO HS 04/09/17 [History] Omeprazole 20 mg PO BID 04/09/17 [History] Atenolol [Tenormin] 50 mg PO HS PRN 05/07/17 [History] Gabapentin [Neurontin] 900 mg PO HS 05/07/17 [History] Acetaminophen-Codeine 300-30mg [Tylenol w/codeine #3] 1 each PO Q4HR PRN #30 tab 05/18/17 [Rx] Albuterol Inhaler [Ventolin Hfa Inhaler] 1 - 2 puff INHALATION RT-Q4H PRN #1 puff 05/18/17 [Rx] Ibuprofen [Motrin] 800 mg PO TID PRN #60 tab 05/18/17 [Rx] Nicotine 21Mg/24Hr Patch [Habitrol] 1 patch TRANSDERM DAILY #14 patch 05/18/17 [ Rx] Sennosides-Docusate Sodium [Senokot-S] 2 each PO BID tab 05/18/17 [Rx] Follow up Appointment(s)/Referral(s): Jennifer Arreaga DO [Doctor of Osteopathic Medicine] - 2 Weeks Activity/Diet/Wound Care/Special Instructions: Diet as tolerated. No heavy lifting, stooping, bending. May shower, but no tub baths. No driving until off of narcotic pain medication. Discharge Disposition: HOME SELF-CARE
[2017-05-18] MEDS ORDERED: ACETAMINOPHEN TAB 325 MG TAB PO PRN (07:37)
[2017-05-18 07:55] LABS: Basophils % (A) 0 %; Eosinophils % (A) 0 %; HCT 38.6 % (34.0-46.0); HGB 12.5 gm/dL (11.4-16.0); Lymphocytes # (A) 1.8 k/uL (1.0-4.8); Lymphocytes % (A) 15 %; MCH 30.9 pg (25.0-35.0); MCHC 32.4 g/dL (31.0-37.0); MCV 95.2 fL (80.0-100.0); Mean Platelet Volume 7.7; Monocytes # (A) 0.6 k/uL (0-1.0); Monocytes % (A) 5 %; Neutrophils # (A) 9.6 k/uL (1.3-7.7); Neutrophils % (A) 79 %; Platelet Count 151 k/uL (150-450); RBC 4.06 m/uL (3.80-5.40); RDW 13.1 % (11.5-15.5); WBC 12.3 k/uL (3.8-10.6)
[2017-05-18] MEDS: ATENOLOL 50 MG TAB PO SCH (09:11)
[2017-05-18] MEDS: MELOXICAM 7.5 MG TAB PO SCH (09:13)
[2017-05-18] MEDS: MONTELUKAST 10 MG TAB PO SCH (09:13)
[2017-05-18] MEDS: SENNOSIDES-DOCUSATE SODIUM 1 EACH TAB PO SCH (09:13)
[2017-05-18] MEDS: NICOTINE 21MG/24HR PATCH TRANSDERM SCH (09:13)
[2017-05-18] MEDS: PANTOPRAZOLE 40 MG TABLET PO SCH (09:14)
[2017-05-18 09:28] VITALS: RESP 16
[2017-05-18 11:55] VITALS: BP 122/78; PULSE 94
== END 2017-05-18 12:34 | disposition home or self-care (01) | DRG 743 ==
LOC: 2ORMAIN 05:44 → 6PED 08:55
PROVIDERS: ADMIT Obstetrics & Gynecology; ATTEND Obstetrics & Gynecology
DX: N81.2 Incomplete uterovaginal prolapse (principal); M41.9 Scoliosis, unspecified; F17.200 Nicotine dependence, unspecified, uncomplicated; I10 Essential (primary) hypertension; J42 Unspecified chronic bronchitis; J45.909 Unspecified asthma, uncomplicated; K21.9 Gastro-esophageal reflux disease without esophagitis; Z79.1 Long term (current) use of non-steroidal anti-inflammatories (NSAID); Z79.899 Other long term (current) drug therapy; Z80.3 Family history of malignant neoplasm of breast; Z88.2 Allergy status to sulfonamides; Z88.1 Allergy status to other antibiotic agents
CPT/HCPCS: 81025; 85025; 86850; 86900; 86901; 88302; 88307; 94640

== ENCOUNTER 2018-05-16 13:32 | Emergency (ER) | payer BC, OTHER ==
[2018-05-16 13:35] VITALS: TEMP 97.4
[2018-05-16] MEDS ORDERED: SODIUM CHLORIDE 0.9% 1,000 ML IV STA (13:52)
[2018-05-16] MEDS ORDERED: METOCLOPRAMIDE 5 MG/ML 2 ML VIAL IVP STA (13:52)
[2018-05-16] MEDS ORDERED: KETOROLAC 30 MG/ML 1 ML VIAL IVP STA (13:52)
[2018-05-16] MEDS ORDERED: SUMAtriptan SUCCINATE 6 MG/0.5 ML VIAL SQ STA (13:53)
[2018-05-16] MEDS ORDERED: diphenhydrAMINE 50 MG/ML 1 ML VIAL IVP STA (13:53)
--- NOTE | 2018-05-16 14:00 | ED ---
General Adult HPI - General Chief complaint: Headache Stated complaint: Headache Time Seen by Provider: 05/16/18 13:42 Source: patient, RN notes reviewed Mode of arrival: ambulatory Limitations: no limitations - History of Present Illness Initial comments: 52-year-old female with a past medical history of migraines, hypertension, GERD , osteoarthritis presents to the emergency department for a chief complaint of headache. Patient states this headache is consistent with her migraines. Patient states this started earlier today. She states it was a gradual onset. She describes the pain as a aching pain on the right side of her head. Patient states she recently moved here from [place] but was frequently seen in the emergency department there and had Toradol and Imitrex as treatment which helped her. Patient states she is under a lot of stress right now as her daughter is in a 10 hour surgery and she cannot be there with her and states this is what is triggering her migraine. She denies any gait instability or difficulty walking. She denies any recent head injuries or neck pain. Patient has no other complaints at this time including shortness of breath, chest pain, abdominal pain, nausea or vomiting, headache, or visual changes. - Related Data Home Medications Medication Instructions Recorded Confirmed Ergocalciferol (Vitamin D2) 50,000 unit PO SA 07/19/16 05/16/18 [Vitamin D2] Meloxicam [Mobic] 15 mg PO DAILY 07/19/16 05/16/18 Omeprazole 20 mg PO BID 04/09/17 05/16/18 Aspirin 81 mg PO DAILY 05/16/18 05/16/18 Atenolol 25 mg PO BID@0600,1800 05/16/18 05/16/18 Atenolol [Tenormin] 25 mg PO HS PRN 05/16/18 05/16/18 Cyclobenzaprine [Flexeril] 5 mg PO TID PRN 05/16/18 05/16/18 SUMAtriptan SUCCINATE [Sumatriptan 100 mg PO DAILY PRN 05/16/18 05/16/18 Succinate] oxyCODONE-APAP 5-325MG [Percocet 1 tab PO DAILY PRN 05/16/18 05/16/18 5-325 mg] traMADol HCl [Ultram] 50 mg PO BID 05/16/18 05/16/18 Allergies Allergy/AdvReac Type Severity Reaction Status Date / Time indomethacin [From Indocin] Allergy Anaphylaxis Verified 05/16/18 14:03 morphine Allergy Itching Verified 05/16/18 14:03 moxifloxacin [From Avelox] Allergy SHORTNESS Verified 05/16/18 14:03 OF BREATH Sulfa (Sulfonamide Allergy SEVERE Verified 05/16/18 14:03 Antibiotics) ITCHING Review of Systems ROS Statement: Those systems with pertinent positive or pertinent negative responses have been documented in the HPI. ROS Other: All systems not noted in ROS Statement are negative. Past Medical History Past Medical History: GERD/Reflux, Hypertension, Osteoarthritis (OA) Additional Past Medical History / Comment(s): migraines, collapsed LEFT carotid , Chronic Bronchitis. scoliosis History of Any Multi-Drug Resistant Organisms: None Reported Past Surgical History: Back Surgery Additional Past Surgical History / Comment(s): BMT X2, LAPAROTOMY, ARTHROSCOPIC LEFT KNEE, ARTHROSCOPIC SURGERY RIGHT , PARTIAL JOINT REPLACEMENT LEFT KNEE Past Anesthesia/Blood Transfusion Reactions: No Reported Reaction Past Psychological History: No Psychological Hx Reported Smoking Status: Current every day smoker Past Alcohol Use History: None Reported Past Drug Use History: None Reported - Past Family History Sister(s) Family Medical History: Cancer Additional Family Medical History / Comment(s): BREAST CANCER General Exam Limitations: no limitations General appearance: alert, in no apparent distress Head exam: Present: atraumatic, normocephalic, normal inspection Eye exam: Present: normal appearance, PERRL, EOMI. Absent: scleral icterus, conjunctival injection, periorbital swelling ENT exam: Present: normal exam, normal oropharynx (uvula midline), mucous membranes moist Neck exam: Present: normal inspection, full ROM. Absent: tenderness, meningismus, lymphadenopathy Respiratory exam: Present: normal lung sounds bilaterally. Absent: respiratory distress, wheezes, rales, rhonchi, stridor Cardiovascular Exam: Present: regular rate, normal rhythm, normal heart sounds. Absent: systolic murmur, diastolic murmur, rubs, gallop, clicks Extremities exam: Present: normal inspection (appear WNL, moving all extermities ) Neurological exam: Present: alert, oriented X3, CN II-XII intact, normal gait Expanded Patient oriented to: Present: person, place, time Speech: Present: fluid speech Cranial nerves: EOM's Intact: Normal, Tongue Deviation: Normal, Nystagmus: Normal, Facial Sensation: Normal Sensory exam: Upper Extremity Light Touch: Normal, Upper Extremity Pin Prick: Normal, Lower Extremity Light Touch: Normal, Lower Extremity Pin Prick: Normal Motor strength exam: RUE: 5, LUE: 5, RLE: 5, LLE: 5 Eye Response: (4) open spontaneously Motor Response: (6) obeys commands Verbal Response: (5) oriented Webster Total: 15 Psychiatric exam: Present: normal affect, normal mood Course Vital Signs 05/16/18 13:33 Temperature 97.4 F L Pulse Rate 80 Respiratory 16 Rate Blood Pressure 131/88 O2 Sat by Pulse 99 Oximetry Medical Decision Making - Medical Decision Making 52-year-old female presents for right-sided headache consistent with previous migraines. No focal neuro deficits. Patient is sensitive to light and sound, onset was gradual. Patient has not been seen here before for this but recently moved from [place] and was seen frequently there. Vitals are within acceptable limits. Patient was given pain medications and Reglan. On reevaluation patient states her headache is completely gone. She states she is feeling much better. Stating she would like to go home at this time. Patient does have a neurologist in the area and will follow-up with him. She will return if she has any worsening symptoms which she agrees with. Disposition Clinical Impression: Headache Disposition: HOME SELF-CARE Condition: Good Instructions: Migraine Headache (ED), Acute Headache (ED) Additional Instructions: Please continue to take home medications. Please follow-up with your neurologist or primary care in 1-2 days. Return if you have any worsening symptoms. Is patient prescribed a controlled substance at d/c from ED?: No Referrals: Darren Fierro MD [Primary Care Provider] - 1-2 days Time of Disposition: 15:45
[2018-05-16 16:12] VITALS: BP 130/87; PULSE 70; RESP 18
== END 2018-05-16 15:57 | disposition home or self-care (01) ==
LOC: EC 13:32
DX: G43.909 Migraine, unspecified, not intractable, without status migrainosus (principal); Z63.79 Other stressful life events affecting family and household; I10 Essential (primary) hypertension; K21.9 Gastro-esophageal reflux disease without esophagitis; M19.90 Unspecified osteoarthritis, unspecified site; F17.200 Nicotine dependence, unspecified, uncomplicated; Z88.1 Allergy status to other antibiotic agents; Z88.2 Allergy status to sulfonamides; Z88.5 Allergy status to narcotic agent; Z88.6 Allergy status to analgesic agent; Z79.1 Long term (current) use of non-steroidal anti-inflammatories (NSAID); Z79.82 Long term (current) use of aspirin; Z79.891 Long term (current) use of opiate analgesic; Z79.899 Other long term (current) drug therapy; Z96.652 Presence of left artificial knee joint
CPT/HCPCS: 99283; 96374; 96375 ×2; 96361; 96372; J3030; J1200; J2765; J1885

== ENCOUNTER → 2019-11-17 | Outpatient (CLI) | payer MEDICARE, OTHER ==
--- NOTE | 2019-11-17 13:53 | US ---
EXAMINATION TYPE: US venous doppler duplex LE DATE OF EXAM: 11/17/2019 10:01 AM COMPARISON: NONE CLINICAL HISTORY: Edema R60.9 Lower extremity. SIDE PERFORMED: Bilateral TECHNIQUE: The lower extremity deep venous system is examined utilizing real time linear array sonog topher with graded compression, doppler sonography and color-flow sonography. VESSELS IMAGED: External Iliac Vein (EIV) Common Femoral Vein Deep Femoral Vein Greater Saphenous Vein * Femoral Vein Popliteal Vein Small Saphenous Vein * Proximal Calf Veins (* superficial vessels) On scanning note is made of a ill-defined hypoechoic area measuring approximately 3.4 x 3.3 x 1.7 cm may be a right popliteal fossa cyst. Right Leg: Negative for DVT Left Leg: Negative for DVT IMPRESSION: 1. Bilateral lower extremity ultrasound negative for deep venous thrombosis. 2. There appears to be a right popliteal cyst present.
== END | disposition home or self-care (01) ==
LOC: RADUSWWP 09:32
PROVIDERS: ATTEND Internal Medicine
DX: R60.9 Edema, unspecified (principal)
CPT/HCPCS: 93970

== ENCOUNTER → 2019-11-20 | Outpatient (CLI) | payer MEDICARE, OTHER ==
--- NOTE | 2019-11-20 13:00 | ECHOF ---
Referral Reason:R60.02 Short of breath MEASUREMENTS -------- HEIGHT: 175.3 cm WEIGHT: 102.5 kg BP: RVIDd: 3.7 cm (< 3.3) IVSd: 1.2 cm (0.6 - 1.1) LVIDd: 3.9 cm (3.9 - 5.3) LVPWd: 1.1 cm (0.6 - 1.1) IVSs: 1.5 cm LVIDs: 2.8 cm LVPWs: 1.5 cm LAESV Index (A-L): 17.87 ml/m Ao Diam: 3.1 cm (2.0 - 3.7) AV Cusp: 2.2 cm (1.5 - 2.6) MV EXCURSION: 14.991 mm (> 18.000) MV EF SLOPE: 58 mm/s (70 - 150) MV E Nasir: 0.60 m/s MV DecT: 247 ms MV A Nasir: 0.78 m/s MV E/A Ratio: 0.77 RAP: 5.00 mmHg RVSP: 47.45 mmHg FINDINGS -------- Sinus rhythm. This was a technically adequate study. The left ventricular size is normal. There is mild concentric left ventricular hypertrophy. Overa ll left ventricular systolic function is normal with, an EF between 55 - 60 %. The diastolic fillin g pattern is normal for the age of the patient 12.55. The right ventricle is mildly enlarged. Normal LA size by volume 22+/-6 ml/m2. The right atrial size is normal. Interatrial and interventricular septum intact. The aortic valve is trileaflet, and appears structurally normal. No aortic stenosis or regurgitation. Normal appearing mitral valve. No mitral regurgitation. Mild tricuspid regurgitation present. There is mild pulmonary hypertension. The right ventricular systolic pressure, as measured by Doppler, is 47.45mmHg. There is no pulmonic regurgitation present. The aortic root size is normal. Normal inferior vena cava with normal inspiratory collapse consistent with estimated right atrial pre ssure of 5 mmHg. There is no pericardial effusion. CONCLUSIONS -------- 1. There is mild concentric left ventricular hypertrophy. 2. Overall left ventricular systolic function is normal with, an EF between 55 - 60 %. 3. The diastolic filling pattern is normal for the age of the patient 12.55 4. The right ventricle is mildly enlarged. 5. Normal LA size by volume 22+/-6 ml/m2. 6. The aortic valve is trileaflet, and appears structurally normal. No aortic stenosis or regurgitati on. 7. Normal appearing mitral valve. 8. Mild tricuspid regurgitation present. 9. There is mild pulmonary hypertension. 10. There is no pulmonic regurgitation present. 11. There is no pericardial effusion. FISH STRAIGHTENER: Gretel Barriga RDCS
== END | disposition home or self-care (01) ==
LOC: RADECHMAIN 11:13
PROVIDERS: ATTEND Internal Medicine
DX: I07.1 Rheumatic tricuspid insufficiency (principal); I27.20 Pulmonary hypertension, unspecified
CPT/HCPCS: 93306

== ENCOUNTER 2021-09-01 13:05 | Emergency (ER) | payer MEDICARE, OTHER ==
[2021-09-01 13:31] VITALS: RESP 16; TEMP 98
[2021-09-01] MEDS ORDERED: HYDROmorphone 1 MG/ML 1 ML SYRINGE IM STA (13:51)
--- NOTE | 2021-09-01 14:06 | ED ---
General Adult HPI - General Chief complaint: Extremity Injury, Lower Stated complaint: Lt Knee Pain Time Seen by Provider: 09/01/21 13:45 Source: patient, RN notes reviewed, old records reviewed Mode of arrival: ambulatory Limitations: no limitations - History of Present Illness Initial comments: 55-year-old female presenting with acute on chronic left knee pain. Patient has previous history of knee replacement in [place] and has had a known Good's cyst for some time. She is reporting increased pain in this knee. No fever. She is concerned that there may be a blood clot. She is followed with orthopedics, Dr. Gold for right shoulder issues. She denies any new trauma but has had increased pain. - Related Data Home Medications Medication Instructions Recorded Confirmed Ergocalciferol (Vitamin D2) 50,000 unit PO SA 07/19/16 05/16/18 [Vitamin D2] Meloxicam [Mobic] 15 mg PO DAILY 07/19/16 05/16/18 Omeprazole 20 mg PO BID 04/09/17 05/16/18 Aspirin 81 mg PO DAILY 05/16/18 05/16/18 Cyclobenzaprine [Flexeril] 5 mg PO TID PRN 05/16/18 05/16/18 SUMAtriptan succinate [Sumatriptan 100 mg PO DAILY PRN 05/16/18 05/16/18 Succinate] atenoloL 25 mg PO BID@0600,1800 05/16/18 05/16/18 atenoloL [Tenormin] 25 mg PO HS PRN 05/16/18 05/16/18 oxyCODONE-APAP 5-325MG [Percocet 1 tab PO DAILY PRN 05/16/18 05/16/18 5-325 mg] traMADol HCl [Ultram] 50 mg PO BID 05/16/18 05/16/18 Allergies Allergy/AdvReac Type Severity Reaction Status Date / Time indomethacin [From Indocin] Allergy Anaphylaxis Verified 09/01/21 13:31 morphine Allergy Itching Verified 09/01/21 13:31 moxifloxacin [From Avelox] Allergy SHORTNESS Verified 09/01/21 13:31 OF BREATH Sulfa (Sulfonamide Allergy SEVERE Verified 09/01/21 13:31 Antibiotics) ITCHING Review of Systems ROS Statement: Those systems with pertinent positive or pertinent negative responses have been documented in the HPI. ROS Other: All systems not noted in ROS Statement are negative. Past Medical History Past Medical History: GERD/Reflux, Hypertension, Osteoarthritis (OA) Additional Past Medical History / Comment(s): collapsed LEFT carotid, Chronic Bronchitis. scoliosis History of Any Multi-Drug Resistant Organisms: None Reported Past Surgical History: Adenoidectomy, Appendectomy, Cholecystectomy, Orthopedic Surgery, Tonsillectomy, Tubal Ligation Additional Past Surgical History / Comment(s): BMT X2, LAPAROTOMY, ARTHROSCOPIC LEFT KNEE, ARTHROSCOPIC SURGERY RIGHT , PARTIAL JOINT REPLACEMENT LEFT KNEE Past Anesthesia/Blood Transfusion Reactions: No Reported Reaction Past Psychological History: No Psychological Hx Reported Smoking Status: Current every day smoker Past Alcohol Use History: None Reported Past Drug Use History: None Reported - Past Family History Sister(s) Family Medical History: Cancer Additional Family Medical History / Comment(s): BREAST CANCER General Exam Limitations: no limitations General appearance: alert, in no apparent distress Head exam: Present: atraumatic, normocephalic Eye exam: Present: normal appearance, PERRL ENT exam: Present: normal exam Neck exam: Present: normal inspection. Absent: tenderness, meningismus Respiratory exam: Present: normal lung sounds bilaterally. Absent: respiratory distress, wheezes Cardiovascular Exam: Present: regular rate, normal rhythm GI/Abdominal exam: Present: soft. Absent: distended, tenderness, guarding Extremities exam: Present: joint swelling (Joint effusion left knee, no erythema, no warmth, distal pulses in the left leg are intact. There is no calf tenderness. There is a Good cyst which is quite large left popliteal fossa.) Neurological exam: Present: alert, oriented X3, CN II-XII intact. Absent: motor sensory deficit Psychiatric exam: Present: normal affect, normal mood Skin exam: Present: warm, dry, intact. Absent: cyanosis, diaphoretic Course Vital Signs 09/01/21 13:29 Temperature 98 F Pulse Rate 78 Respiratory 16 Rate Blood Pressure 99/68 O2 Sat by Pulse 95 Oximetry - Reevaluation(s) Reevaluation #1: 09/01/21 1500 Patient care signed out to Dr. Talley at shift change awaiting imaging. Medical Decision Making - Medical Decision Making 55-year-old female with left knee pain. Patient does have large Good's cyst. Distal pulses are intact. She has a small joint effusion on exam. X-ray performed which is negative for acute bony abnormality, no fracture dislocation. Ultrasound was performed to rule out DVT. This is negative. Patient should follow with orthopedics. She's given strict return parameters including fever or worsening pain. Disposition Clinical Impression: Knee pain Disposition: HOME SELF-CARE Condition: Good Instructions (If sedation given, give patient instructions): Knee Pain (ED) Is patient prescribed a controlled substance at d/c from ED?: No Referrals: Rafiq Weber MD [Primary Care Provider] - 1-2 days Florencio Germain MD [STAFF PHYSICIAN] - 1-2 days
--- NOTE | 2021-09-01 14:45 | US ---
EXAMINATION TYPE: US venous doppler duplex LE LT DATE OF EXAM: 09/01/2021 2:37 PM COMPARISON: 11/17/2019 CLINICAL HISTORY: pain. left knee pain SIDE PERFORMED: left TECHNIQUE: The lower extremity deep venous system is examined utilizing real time linear array sonog topher with graded compression, doppler sonography and color-flow sonography. VESSELS IMAGED: Common Femoral Vein Deep Femoral Vein Greater Saphenous Vein * Femoral Vein Popliteal Vein Small Saphenous Vein * Proximal Calf Veins (* superficial vessels) Left Leg: no evidence of DVT IMPRESSION: Grayscale, color doppler, spectral doppler imaging performed of the deep veins of the lo wer extremities. There is normal flow, compressibility, vascular waveforms.
--- NOTE | 2021-09-01 15:03 | XR ---
EXAMINATION TYPE: XR knee complete LT DATE OF EXAM: 09/01/2021 COMPARISON: None HISTORY: Left knee pain TECHNIQUE: 3 view left knee FINDINGS: There is a partial knee prosthesis present. There is mild narrowing of the lateral compartm ent joint space. Lateral femoral condylar and tibial plateau spurring is present. No joint effusion i s evident. Soft tissues appear normal. Follow up exams can be performed 7-10 days from acute trauma for continued pain. IMPRESSION: 1. Mild to moderate degenerative changes of the left knee. Partial prosthesis is present in the medi al compartment.
[2021-09-01 15:22] VITALS: BP 118/76; PULSE 64
== END 2021-09-01 15:20 | disposition home or self-care (01) ==
LOC: EC 13:05
DX: M71.22 Synovial cyst of popliteal space [Baker], left knee (principal); M25.462 Effusion, left knee; I10 Essential (primary) hypertension; M19.90 Unspecified osteoarthritis, unspecified site; K21.9 Gastro-esophageal reflux disease without esophagitis; F17.200 Nicotine dependence, unspecified, uncomplicated; Z79.82 Long term (current) use of aspirin; Z88.5 Allergy status to narcotic agent; Z88.2 Allergy status to sulfonamides; Z90.49 Acquired absence of other specified parts of digestive tract; Z98.51 Tubal ligation status; Z96.652 Presence of left artificial knee joint
CPT/HCPCS: 99284; 96372; 73562; 93971; J1170

== ENCOUNTER 2022-05-20 16:44 | Emergency (ER) | payer MEDICARE, OTHER ==
[2022-05-20 16:56] VITALS: TEMP 98.1
[2022-05-20 18:56] LABS: Basophils # (A) 0.1 k/uL (0-0.2); Basophils % (A) 1 %; Eosinophils # (A) 0.4 k/uL (0-0.7); Eosinophils % (A) 4 %; HCT 42.5 % (34.0-46.0); HGB 14.8 gm/dL (11.4-16.0); Lymphocytes # (A) 2.6 k/uL (1.0-4.8); Lymphocytes % (A) 30 %; MCH 32.8 pg (25.0-35.0); MCHC 34.8 g/dL (31.0-37.0); MCV 94.3 fL (80.0-100.0); Mean Platelet Volume 8.1; Monocytes # (A) 0.4 k/uL (0-1.0); Monocytes % (A) 5 %; Neutrophils # (A) 5.1 k/uL (1.3-7.7); Neutrophils % (A) 58 %; Platelet Count 166 k/uL (150-450); RBC 4.51 m/uL (3.80-5.40); RDW 12.8 % (11.5-15.5); WBC 8.7 k/uL (3.8-10.6)
--- NOTE | 2022-05-20 19:03 | ED ---
General Adult HPI - General Chief complaint: Wound/Laceration Stated complaint: Post Op - Incision Opening Under Arm Time Seen by Provider: 05/20/22 17:36 Source: patient, RN notes reviewed Mode of arrival: ambulatory Limitations: no limitations - History of Present Illness Initial comments: 56-year-old female presents to the emergency department 9 days status post surgical intervention of hydradenitis superativa of the right axilla. She had the procedure on 05/10/2022 and it was performed by Dr. Angelina Champion. Patient notes she noticed the wound broke open 3 days ago. She has noticed bloody in which she describes as thick pussy discharge from the site. She denies trauma or overuse. He has been taking Flynn 5's without relief of her pain. She denies fever, chills, chest pain, palpitations, numbness, tingling. Her follow-up appointment with Dr. Champion is scheduled for , 05/24/2022. - Related Data Home Medications Medication Instructions Recorded Confirmed Omeprazole 20 mg PO DAILY 04/09/17 05/20/22 Aspirin 81 mg PO DAILY 05/16/18 05/20/22 SUMAtriptan succinate [Sumatriptan 100 mg PO DAILY PRN 05/16/18 05/20/22 Succinate] ALPRAZolam [Xanax] 0.25 mg PO HS PRN 05/20/22 05/20/22 Albuterol Sulfate [Ventolin HFA] 2 puff INHALATION RT-Q6H PRN 05/20/22 05/20/22 Cyanocobalamin (Vitamin B-12) 1,000 mcg PO DAILY 05/20/22 05/20/22 [Vitamin B-12] Doxycycline [Vibramycin] 100 mg PO BID 05/20/22 05/20/22 Ergocalciferol [Vitamin D2 (1250 1,250 mcg PO TH 05/20/22 05/20/22 Mcg = [id number] Iu)] Escitalopram [Lexapro] 10 mg PO DAILY 05/20/22 05/20/22 Fluticasone Propionate 110 Mcg 1 puff INHALATION RT-DAILY 05/20/22 05/20/22 [Flovent 110 Mcg Inhaler] HYDROcodone/APAP 5-325MG [Flynn 1 tab PO Q8H PRN 05/20/22 05/20/22 5-325] Levocetirizine Dihydrochloride 5 mg PO HS 05/20/22 05/20/22 [Xyzal] Montelukast [Singulair] 10 mg PO DAILY 05/20/22 05/20/22 Multivitamins, Thera [Multivitamin 1 tab PO DAILY 05/20/22 05/20/22 (formulary)] Pravastatin Sodium [Pravachol] 40 mg PO DAILY 05/20/22 05/20/22 Propranolol [Inderal] 40 mg PO BID 05/20/22 05/20/22 Previous Rx's Medication Instructions Recorded HYDROcodone/APAP 7.5-325MG [Flynn 1 tab PO Q6HR PRN 3 Days #12 tab 05/20/22 7.5-325] Allergies Allergy/AdvReac Type Severity Reaction Status Date / Time morphine Allergy Anaphylaxis Verified 05/20/22 20:12 moxifloxacin [From Avelox] Allergy Anaphylaxis Verified 05/20/22 20:12 Sulfa (Sulfonamide Allergy Anaphylaxis Verified 05/20/22 20:12 Antibiotics) indomethacin [From Indocin] AdvReac Confusion Verified 05/20/22 20:12 Review of Systems ROS Statement: Those systems with pertinent positive or pertinent negative responses have been documented in the HPI. ROS Other: All systems not noted in ROS Statement are negative. Past Medical History Past Medical History: GERD/Reflux, Hypertension, Osteoarthritis (OA) Additional Past Medical History / Comment(s): collapsed LEFT carotid, Chronic Bronchitis. scoliosis History of Any Multi-Drug Resistant Organisms: None Reported Past Surgical History: Adenoidectomy, Appendectomy, Cholecystectomy, Orthopedic Surgery, Tonsillectomy, Tubal Ligation Additional Past Surgical History / Comment(s): BMT X2, LAPAROTOMY, ARTHROSCOPIC LEFT KNEE, ARTHROSCOPIC SURGERY RIGHT , PARTIAL JOINT REPLACEMENT LEFT KNEE Past Anesthesia/Blood Transfusion Reactions: No Reported Reaction Past Psychological History: No Psychological Hx Reported Smoking Status: Current every day smoker Past Alcohol Use History: None Reported Past Drug Use History: None Reported - Past Family History Sister(s) Family Medical History: Cancer Additional Family Medical History / Comment(s): BREAST CANCER General Exam Limitations: no limitations General appearance: alert, in no apparent distress Head exam: Present: atraumatic, normocephalic, normal inspection Eye exam: Present: normal appearance, PERRL, EOMI. Absent: scleral icterus, conjunctival injection, periorbital swelling ENT exam: Present: normal exam, mucous membranes moist Neck exam: Present: normal inspection. Absent: tenderness, meningismus, lymphadenopathy Respiratory exam: Present: normal lung sounds bilaterally. Absent: respiratory distress, wheezes, rales, rhonchi, stridor Cardiovascular Exam: Present: regular rate, normal rhythm, normal heart sounds. Absent: systolic murmur, diastolic murmur, rubs, gallop, clicks GI/Abdominal exam: Present: soft, normal bowel sounds. Absent: distended, tenderness, guarding, rebound, rigid Extremities exam: Present: normal inspection, full ROM, normal capillary refill, other (R axilla with 10cm surgical incision with 2cm open at the lateral edge without active draingage, bleeding, surrounding erythema, edema, or fluctuance. Incision appears well healed. ). Absent: tenderness, pedal edema, joint swelling, calf tenderness Right Shoulder Exam: Present: normal inspection, full ROM Back exam: Present: normal inspection Neurological exam: Present: alert, oriented X3, CN II-XII intact Psychiatric exam: Present: normal affect, normal mood Skin exam: Present: warm, dry, intact, normal color. Absent: rash Course Vital Signs 05/20/22 05/20/22 16:52 19:41 Temperature 98.1 F 98.1 F Pulse Rate 82 75 Respiratory 16 18 Rate Blood Pressure 122/84 135/91 O2 Sat by Pulse 99 99 Oximetry - Reevaluation(s) Reevaluation #1: 05/20/22 18:[address] Champion who recommends that the patient be seen via telehealth tomorrow. He does not recommed any packing, antbiotics or sutures to the surgical site. Medical Decision Making - Medical Decision Making Was pt. sent in by a medical professional or institution (, PA, SALESPERSON FLOOR COVERINGS, urgent care, hospital, or [facility]...) When possible be specific @ -[No] Did you speak to anyone other than the patient for history (EMS, parent, family, police, friend...)? What history was obtained from this source @ -[No] Did you review nursing and triage notes (agree or disagree)? Why? @ -[I reviewed and agree with nursing and triage notes] Were old charts reviewed (outside hosp., previous admission, EMS record, old EKG, old radiological studies, urgent care reports/EKG's, [facility] records)? Report findings @ -[No old charts were reviewed] Differential Diagnosis (chest pain, altered mental status, abdominal pain women, abdominal pain men, vaginal bleeding, weakness, fever, dyspnea, syncope, headache, dizziness, GI bleed, back pain, seizure, CVA, palpatations, mental health)? @ -sepsis, post-operative EKG interpreted by me (3pts min.). @ -[As above] X-rays interpreted by me (1pt min.). @ -[None done] CT interpreted by me (1pt min.). @ -[None done] U/S interpreted by me (1pt. min.). @ -[None done] What testing was considered but not performed or refused? (CT, X-rays, U/S, labs)? Why? @ -[None] What meds were considered but not given or refused? Why? @ -[None] Did you discuss the management of the patient with other professionals (professionals i.e. , PA, SALESPERSON FLOOR COVERINGS, lab, RT, psych nurse, high school social studies tutor, gas or water meter installer, teacher, property disposal officer, bilingual case manager)? Give summary @ -[No] Was smoking cessation discussed for >3mins.? @ -[No] Was critical care preformed (if so, how long)? @ -[No] Were there social determinants of health that impacted care today? How? (Homelessness, low income, unemployed, alcoholism, drug addiction, transportation, low edu. Level, literacy, decrease access to med. care, snf, rehab)? @ -[No] Was there de-escalation of care discussed even if they declined (Discuss DNR or withdrawal of care, Hospice)? DNR status @ -[No] What co-morbidities impacted this encounter? (DM, HTN, Smoking, COPD, CAD, Cancer, CVA, ARF, Chemo, Hep., AIDS, mental health diagnosis, sleep apnea, morbid obesity)? @ -[None] Was patient admitted / discharged? Hospital course, mention meds given and route, prescriptions, significant lab abnormalities, going to OR and other pertinent info. @ -56-year-old female presenting to the emergency department for post operative wound check. Physical exam reveals a well healed incision to the R axilla. Lab work essentially unremarkable and patient remains a-febrile during emergency department. I spoke with Dr. Champion who feels comfortable discharging the patient with a tele-health visit tomorrow. Patient verbalized understanding and all questions were addressed. Patient was discharged in stable condition discussed the case with Dr. Talley [facility] who agrees with plan for discharge. Undiagnosed new problem with uncertain prognosis? @ Post-operative problem Drug Therapy requiring intensive monitoring for toxicity (Heparin, Nitro, Insulin, Cardizem)? @ -[No] Were any procedures done? @ -[No] Diagnosis/symptom? @ Post-operative problem Acute, or Chronic, or Acute on Chronic? @ -[default] Uncomplicated (without systemic symptoms) or Complicated (systemic symptoms)? @ -uncomplicated Side effects of treatment? @ -[No] Exacerbation, Progression, or Severe Exacerbation? @ -[No] Poses a threat to life or bodily function? How? (Chest pain, USA, NC, pneumonia, PE, COPD, DKA, ARF, appy, cholecystitis, CVA, Diverticulitis, Homicidal, [place] icidal, threat to staff... and all critical care pts) @ -[No] - Lab Data Result diagrams: 05/20/22 18:50 05/20/22 18:50 Lab Results 05/20/22 05/20/22 Range/Units 18:50 18:50 WBC 8.7 (3.8-10.6) k/uL RBC 4.51 (3.80-5.40) m/uL Hgb 14.8 (11.4-16.0) gm/dL Hct 42.5 (34.0-46.0) % MCV 94.3 (80.0-100.0) fL MCH 32.8 (25.0-35.0) pg MCHC 34.8 (31.0-37.0) g/dL RDW 12.8 (11.5-15.5) % Plt Count 166 (150-450) k/uL MPV 8.1 Neutrophils % 58 % Lymphocytes % 30 % Monocytes % 5 % Eosinophils % 4 % Basophils % 1 % Neutrophils # 5.1 (1.3-7.7) k/uL Lymphocytes # 2.6 (1.0-4.8) k/uL Monocytes # 0.4 (0-1.0) k/uL Eosinophils # 0.4 (0-0.7) k/uL Basophils # 0.1 (0-0.2) k/uL Sodium 136 L (137-145) mmol/L Potassium 4.4 (3.5-5.1) mmol/L Chloride 107 (98-107) mmol/L Carbon Dioxide 25 (22-30) mmol/L Anion Gap 4 mmol/L BUN 18 H (7-17) mg/dL Creatinine 0.73 (0.52-1.04) mg/dL Est GFR (CKD-EPI)AfAm >90 (>60 ml/min/1.73 sqM) Est GFR (CKD-EPI)NonAf >90 (>60 ml/min/1.73 sqM) Glucose 92 (74-99) mg/dL Calcium 9.0 (8.4-10.2) mg/dL Disposition Clinical Impression: Post-operative complication Disposition: HOME SELF-CARE Instructions (If sedation given, give patient instructions): Wound Dehiscence (ED) Additional Instructions: Please follow up with Dr. Champion tomorrow to schedule a telehealth visit. Phone number to call is : [phone] Prescriptions: HYDROcodone/APAP 7.5-325MG [Flynn 7.5-325] 1 tab PO Q6HR PRN 3 Days #12 tab PRN Reason: Pain/Discomfort Is patient prescribed a controlled substance at d/c from ED?: No Referrals: Rafiq Weber MD [Primary Care Provider] - 1-2 days Time of Disposition: 19:08
[2022-05-20 19:06] LABS: African American GFR (CKD) >90 (>60 ml/min/1.73 sqM); Anion Gap 4 mmol/L; Blood Urea Nitrogen 18 mg/dL (7-17); Carbon Dioxide 25 mmol/L (22-30); Chloride 107 mmol/L (98-107); Glucose 92 mg/dL (74-99); Non-African American GFR(CKD) >90 (>60 ml/min/1.73 sqM); Potassium 4.4 mmol/L (3.5-5.1); Sodium 136 mmol/L (137-145)
[2022-05-20 19:42] VITALS: BP 135/91; PULSE 75; RESP 18
== END 2022-05-20 19:45 | disposition home or self-care (01) ==
LOC: EC 16:44
DX: Z48.89 Encounter for other specified surgical aftercare (principal); K21.9 Gastro-esophageal reflux disease without esophagitis; I10 Essential (primary) hypertension; M19.90 Unspecified osteoarthritis, unspecified site; F17.200 Nicotine dependence, unspecified, uncomplicated; Z88.2 Allergy status to sulfonamides; Z88.6 Allergy status to analgesic agent; Z79.82 Long term (current) use of aspirin; Z79.899 Other long term (current) drug therapy
CPT/HCPCS: 36415; 80048; 85025; 99283

== ENCOUNTER → 2023-08-21 | Outpatient (CLI) | payer MEDICARE, OTHER ==
--- NOTE | 2023-08-22 11:07 | BD ---
EXAMINATION TYPE: Axial Bone Density DATE OF EXAM: 08/21/2023 CLINICAL HISTORY: 57 years old Female. ICD-10 CODE: M89.9 DISORDER OF BONE Height: 65.5 in Weight: 231 lbs FRAX RISK QUESTIONS: Rheumatoid Arthritis: yes Current Tobacco Use: yes RISK FACTORS HISTORY OF: Hip Fracture (Right/Left): When: Spine Fracture: When: History of Wrist Fracture: rt wrist age 17 Surgery to Spine/Wrist (right/left): When: l-spine surgery 2017; lt wrist age [age] EXAM MEASUREMENTS: Bone mineral densitometry was performed using the [employer] System. l-spine surgery 2018 Bone mineral density about the R hip (g/cm2): 1.021 Bone mineral density about the L hip (g/cm2): 0.928 T Score values are as follows: -----R Neck: -0.1 -----L Neck: -0.9 -----R Total: 0.1 -----L Total: -0.6 Z Score values are as follows: -----R Neck: 0.2 -----L Neck: -0.6 -----R Total: 0.0 -----L Total: -0.7 Bone mineral density baseline FRAX%s: The graph provided illustrates a 7.0% chance for a major osteoporotic fx and a 0.6% chance fo r the hips probability for fx in 10 years time. IMPRESSION: Normal (Values between +1 and -1 indicate normal bone mass). Consider repeating this study in 5 year s or sooner if there is some new clinical indication. NOTE: T-SCORE=SD OF THE YOUNG ADULT MEAN.
--- NOTE | 2023-08-22 15:04 | MM ---
Reason for Exam: Screening (asymptomatic). Patient History: Menarche at age 13. First Full-Term at age 20. Hysterectomy at age 49. Postmenopausal. Daughter had breast cancer under age 50. Risk Values: Alyssa 5 year model risk: 2.3%. NCI Lifetime model risk: 14.5%. Prior Study Comparison: No prior studies available for comparison. Tissue Density: The breasts are heterogeneously dense, which may obscure small masses. Findings: Analyzed By CAD. There is no suspicious group of microcalcifications or new suspicious mass in either breast. Overall Assessment: Benign, BI-RAD 2 Management: Screening Mammogram of both breasts in 1 year. . Patient should continue monthly self-breast exams. A clinical breast exam by your physician is recommended on an annual basis. This exam should not preclude additional follow-up of suspicious palpable abnormalities. Note on Alyssa scores and lifetime risk: 1. A Alyssa score greater than 3% is considered moderate risk. If this is the case, consider specialist referral to assess eligibility for a risk reducing agent. 2. If overall lifetime risk for the development of breast cancer is 20% or higher, the patient may qualify for future screening with alternating mammogram and breast MRI. Electronically signed and approved by: Martínez De Leon M.D. Radiologis
== END | disposition home or self-care (01) ==
LOC: RADMAMWWP 06:57
PROVIDERS: ATTEND Internal Medicine Geriatric Medicine
DX: Z12.31 Encounter for screening mammogram for malignant neoplasm of breast (principal); M89.9 Disorder of bone, unspecified; Z78.0 Asymptomatic menopausal state; Z80.3 Family history of malignant neoplasm of breast
CPT/HCPCS: 77063; 77067; 77080